=== PATIENT | female | born 1985 | race Caucasian/White ===

== ENCOUNTER 2016-07-07 10:48 | Emergency (ER) | payer MEDICAID ==
[~2016-07-07] VITALS: Wt 54.5 kg
[~2016-07-07 10:48] MED LIST: FERR28TA PO; PREN-39 PO
[2016-07-07 13:08] LABS: BASOPHILS % 0.4 % (0.0-2.0); EOSINOPHILS # 0.1 10^3/ul (0.0-0.5); EOSINOPHILS % 0.5 % (0.0-7.0); HEMATOCRIT 34.1 % (37.0-47.0); LYMPHOCYTES # 1.9 10^3/ul (0.8-2.9); LYMPHOCYTES % 15.4 % (15.0-51.0); MEAN CORPUSCULAR HEMOGLOBIN 31.9 pg (29.0-33.0); MEAN CORPUSCULAR HGB CONC 35.2 g/dl (32.0-37.0); MEAN CORPUSCULAR VOLUME 90.6 fl (82.0-101.0); MEAN PLATELET VOLUME 9.2 fl (7.4-10.4); MONOCYTE # 0.4 10^3/ul (0.3-0.9); MONOCYTES % 3.2 % (0.0-11.0); NEUTROPHIL # 9.8 10^3/ul (1.6-7.5); NEUTROPHILS % 80.5 % (39.0-77.0); PLATELET COUNT 241 10^3/UL (140-440); RED BLOOD COUNT 3.76 10^6/ul (4.20-5.40); RED CELL DISTRIBUTION WIDTH 12.5 % (11.5-14.5); UNCORRECTED WBC 12.2 10^3/ul (4.8-10.8); WHITE BLOOD COUNT 12.2 10^3/ul (4.8-10.8)
[2016-07-07 13:13] LABS: ALBUMIN 4.5 g/dl (3.3-4.9); CONDITION 1; POTASSIUM 3.5 mmol/L (3.5-5.1)
[2016-07-07 13:15] LABS: CREATININE 0.47 mg/dl (0.44-1.00)
[2016-07-07 13:16] LABS: ALBUMIN/GLOBULIN RATIO 1.21; BILIRUBIN,INDIRECT 1.5 mg/dl (0-1.1); BILIRUBIN,TOTAL 1.5 mg/dl (0.2-1.3); CALCIUM 9.4 mg/dl (8.4-10.2); TOTAL PROTEIN 8.2 g/dl (6.1-8.1)
--- NOTE | 2016-07-07 13:23 | RADRPT ---
PROCEDURE: US Abdomen. CLINICAL INDICATION: Abdominal pain. TECHNIQUE: Multiple real-time images were acquired of the patient's abdomen and retroperitoneum ut ilizing a high resolution transducer. COMPARISON: None FINDINGS: The liver demonstrates normal echogenicity. The liver is normal in size and no focal solid lesions are seen. The portal vein is patent with normal direction of flow. No intrahepatic biliary dilatat ion is seen. The liver measures 15.7 cm in length. No gallstones are identified within the gallbladder. There is no pericholecystic fluid or gallbladd er wall thickening. The common bile duct measures 3 mm in maximal dimension. The visualized portions of the pancreas are unremarkable. The spleen is normal in size. The spleen measures 9.5 cm in length. No free fluid is identified. The kidneys are normal in size, and demonstrate normal echogenicity and cortical thickness. The rig ht kidney measures 12.45 cm. The left kidney measures 12.6 cm. There is no evidence of hydronephro sis. There are no kidney stones. The proximal aorta measures 1.3 cm in transverse dimension. IMPRESSION: Unremarkable abdominal ultrasound. RPTAT:AAJJ Physician Beth Date Time Electronically viewed and signed by Physician Beth on 07/07/2016 13:23 ROBERTO CARLOS/
--- NOTE | 2016-07-07 13:26 | RADRPT ---
PROCEDURE: US Pelvis. CLINICAL INDICATION: Vaginal bleeding with . TECHNIQUE: Multiple sonographic images of the pelvis were obtained utilizing a transabdominal and endovaginal technique. The images were reviewed on a PACS workstation. COMPARISON: 04/05/2016 pelvic ultrasound. FINDINGS: Single live intrauterine 8 weeks 1 day gestational age by crown-rump length measurement. P ositive heart motion with a heart rate of 185 beats per minute.. Small crescentic focus of de creased echogenicity along the inferior margin of the gestational sac compatible with trace subchori onic hemorrhage. Normal right ovary with normal blood flow. Left ovary not visualized. No free fluid or adnexal mas s. IMPRESSION: 1. Single live intrauterine 8 weeks 1 day gestational age. Positive heart motion w ith a heart rate of 185 beats per minute. 2. Small subchorionic hemorrhage. 3. Nonvisualization left ovary. Normal right ovary. 4. No free fluid or adnexal mass. RPTAT:AAJJ Physician Beth Date Time Electronically viewed and signed by Physician Beth on 07/07/2016 13:26 ROBERTO CARLOS/
[2016-07-07 13:27] LABS: URINE BLOOD (Dip) POC 1+ (NEGATIVE)
--- NOTE | 2016-07-07 13:43 | ERD ---
ER Documentation Chief Complaint Date/Time DATE: 07/07/16 TIME: 13:41 Chief Complaint ABD PAIN SINCE YESTERDAY. NO VAG BLEED, NO N/V/ HPI This patient is a Ab1 LC3, 31-year-old female presenting to the emergency department for bilateral lower quadrant radiating to the suprapubic area abdominal pain which is been ongoing for 2 days. The patient additionally reports some nausea and one episode of vomiting. The patient denies any vaginal bleeding or cramping. She has taken no medication at home for her symptoms. Pain is rated at a 6 out of 10 on the pain scale. She states her LMP was approximately April 17, 2016. Patient denies any fevers, chills, dysuria, or other symptoms at this time. ROS All systems reviewed and are negative except as per history of present illness. Medications Home Meds Reported Medications Ferrous Sulfate (Ferrous Sulfate) 1 Tab Tablet, 1 TAB PO DAILY 08/28/13 Vits W-Ca,Fe,Fa(<1MG) ( Vitamins) 1 Tab Tablet, 1 TAB PO DAILY 08/28/13 Allergies Allergies: Coded Allergies: No Known Allergies (Verified Allergy, Unknown, 08/28/13) No Known Drug Allergy (Verified Allergy, Unknown, 04/26/11) PMhx/Soc Medical and Surgical Hx: pt denies Medical Hx, pt denies Surgical Hx History of Surgery: No Anesthesia Reaction: No Hx Neurological Disorder: No Hx Respiratory Disorders: No Hx Cardiac Disorders: No Hx Psychiatric Problems: No Hx Miscellaneous Medical Probl: No Hx Alcohol Use: No Hx Substance Use: No Hx Tobacco Use: No Smoking Status: Never smoker FmHx Noncontributory for chief complaint Physical Exam Vitals Vital Signs Date Time Temp Pulse Resp B/P Pulse Ox O2 Delivery O2 Flow Rate FiO2 07/07/16 10:51 98.8 71 20 107/54 100 Physical Exam INITIAL VITAL SIGNS: Reviewed by me. GENERAL: Alert and interactive. No acute distress. HEAD: Head is normocephalic and atraumatic. EYES: EOMI. No scleral icterus. No conjunctival injection. ENT: Moist mucosa. NECK: Supple. Full range of motion. RESPIRATORY: Normal respiratory effort. Clear breath sounds bilaterally. No wheezing, rales, or rhonchi. CV: Regular rate and rhythm. Normal S1 S2. No S3 or S4. No murmurs. ABDOMEN: Soft, non-distended, non-tender. No guarding. No rebound. No masses. EXTREMITIES: No deformity. SKIN: Warm and dry. NEUROLOGIC: Alert and oriented x 4. Speech is normal. Moves all extremities equally. No motor or sensory deficits noted. Result Diagram: 07/07/16 1245 07/07/16 1245 Results 24 hrs Laboratory Tests Test 07/07/16 12:45 07/07/16 13:28 Alanine Aminotransferase (ALT/SGPT) 20IU/L Albumin 4.5g/dl Albumin/Globulin Ratio 1.21 Alkaline Phosphatase 41IU/L Anion Gap 17 Aspartate Amino Transf (AST/SGOT) 12IU/L Basophils # 0.010^3/ul Basophils % 0.4% Blood Urea Nitrogen 11mg/dl Calcium Level 9.4mg/dl Carbon Dioxide Level 25mmol/L Chloride Level 102mmol/L Creatinine 0.47mg/dl Direct Bilirubin 0.00mg/dl Eosinophils # 0.110^3/ul Eosinophils % 0.5% Globulin 3.70g/dl Glucose Level 136mg/dl Hematocrit 34.1% Hemoglobin 12.0g/dl Indirect Bilirubin 1.5mg/dl Lymphocytes # 1.910^3/ul Lymphocytes % 15.4% Mean Corpuscular Hemoglobin 31.9pg Mean Corpuscular Hemoglobin Concent 35.2g/dl Mean Corpuscular Volume 90.6fl Mean Platelet Volume 9.2fl Monocytes # 0.410^3/ul Monocytes % 3.2% Neutrophils # 9.810^3/ul Neutrophils % 80.5% Nucleated Red Blood Cells # 0.010^3/ul Nucleated Red Blood Cells % 0.0/100WBC Platelet Count 98904^3/UL Potassium Level 3.5mmol/L Red Blood Count 3.7610^6/ul Red Cell Distribution Width 12.5% Sodium Level 140mmol/L Total Bilirubin 1.5mg/dl Total Protein 8.2g/dl White Blood Count 12.210^3/ul Bedside Urine Blood 1+ Bedside Urine Glucose (UA) Negative Bedside Urine Ketones (LAB) Negative Bedside Urine Leukocyte Esterase (L Negative Bedside Urine Nitrite (LAB) Negative Bedside Urine Protein (LAB) Negative Bedside Urine pH (LAB) 6.0 Procedures/MDM EMERGENCY DEPARTMENT COURSE / MEDICAL DECISION MAKING: This is a 31-year-old female who comes to the emergency room secondary to complaints of lower quadrant abdominal pain. The patient was given [] in the department. On re-evaluation, the patient was feeling improved. Lab results reviewed and showed [] Radiology: PROCEDURE: US Abdomen. CLINICAL INDICATION: Abdominal pain. TECHNIQUE: Multiple real-time images were acquired of the patient's abdomen and retroperitoneum utilizing a high resolution transducer. COMPARISON: None FINDINGS: The liver demonstrates normal echogenicity. The liver is normal in size and no focal solid lesions are seen. The portal vein is patent with normal direction of flow. No intrahepatic biliary dilatation is seen. The liver measures 15.7 cm in length. No gallstones are identified within the gallbladder. There is no pericholecystic fluid or gallbladder wall thickening. The common bile duct measures 3 mm in maximal dimension. The visualized portions of the pancreas are unremarkable. The spleen is normal in size. The spleen measures 9.5 cm in length. No free fluid is identified. The kidneys are normal in size, and demonstrate normal echogenicity and cortical thickness. The right kidney measures 12.45 cm. The left kidney measures 12.6 cm. There is no evidence of hydronephrosis. There are no kidney stones. The proximal aorta measures 1.3 cm in transverse dimension. IMPRESSION: Unremarkable abdominal ultrasound. PROCEDURE: US Pelvis. CLINICAL INDICATION: Vaginal bleeding with . TECHNIQUE: Multiple sonographic images of the pelvis were obtained utilizing a transabdominal and endovaginal technique. The images were reviewed on a PACS workstation. COMPARISON: 04/05/2016 pelvic ultrasound. FINDINGS: Single live intrauterine 8 weeks 1 day gestational age by crown-rump length measurement. Positive heart motion with a heart rate of 185 beats per minute.. Small crescentic focus of decreased echogenicity along the inferior margin of the gestational sac compatible with trace subchorionic hemorrhage. Normal right ovary with normal blood flow. Left ovary not visualized. No free fluid or adnexal mass. IMPRESSION: 1. Single live intrauterine 8 weeks 1 day gestational age. Positive heart motion with a heart rate of 185 beats per minute. 2. Small subchorionic hemorrhage. 3. Nonvisualization left ovary. Normal right ovary. 4. No free fluid or adnexal mass. The primary diagnosis is []. Secondary diagnosis is [] I have low suspicion for [] at this time. Discharge: I have discussed the lab results and diagnostic findings with the patient and answered any questions or concerns. The patient was discharged with a prescription for []. The patient was advised to followup with their PMD in 1- 2 days and to return to the Emergency Department if there are any new or worsening symptoms. The patient understood and agreed with the diagnosis, treatment and plan. The patient is stable for discharge at this time. Departure Diagnosis: Primary Impression: Abdominal pain Condition: Stable Additional Instructions: No mas mejor en 2-3 davis, regresar. Mas peor en 24 horas, regresear rapidamente. Ir a doctor primario in 5-7 davis. Usar instrucciones cuando chandrika medicamento. ANNIE MIMS PA-C Jul 07, 2016 13:43
[2016-07-07] MEDS ORDERED: ACET325T33 PO (14:03)
== END 2016-07-07 14:13 | disposition home or self-care (01) ==
LOC: FTE 10:48
DX: O26.891 Other specified pregnancy related conditions, first trimester (principal); R10.31 Right lower quadrant pain; R10.32 Left lower quadrant pain; Z3A.08 8 weeks gestation of pregnancy
CPT/HCPCS: 76700; 76801; 80053; 81003; 85025; Z7502

== ENCOUNTER 2016-07-21 18:30 | Emergency (ER) | payer MEDICAID ==
[~2016-07-21] VITALS: Ht 160 cm; Wt 54.5 kg
[~2016-07-21 18:30] MED LIST changes: +ACET325T33 PO
[2016-07-21 19:00] VITALS: Ht 160 cm; Wt 54.5 kg
[2016-07-21 19:48] LABS: BASOPHILS % 0.5 % (0.0-2.0); EOSINOPHILS # 0.2 10^3/ul (0.0-0.5); EOSINOPHILS % 1.8 % (0.0-7.0); HEMOGLOBIN 11.9 g/dl (12.0-16.0); LYMPHOCYTES # 2.9 10^3/ul (0.8-2.9); LYMPHOCYTES % 30.5 % (15.0-51.0); MEAN CORPUSCULAR HEMOGLOBIN 31.7 pg (29.0-33.0); MEAN CORPUSCULAR VOLUME 93.2 fl (82.0-101.0); MEAN PLATELET VOLUME 8.9 fl (7.4-10.4); MONOCYTE # 0.4 10^3/ul (0.3-0.9); MONOCYTES % 4.3 % (0.0-11.0); NEUTROPHIL # 5.9 10^3/ul (1.6-7.5); NEUTROPHILS % 62.9 % (39.0-77.0); PLATELET COUNT 261 10^3/UL (140-440); RED BLOOD COUNT 3.76 10^6/ul (4.20-5.40); RED CELL DISTRIBUTION WIDTH 12.8 % (11.5-14.5); UNCORRECTED WBC 9.4 10^3/ul (4.8-10.8); WHITE BLOOD COUNT 9.4 10^3/ul (4.8-10.8)
[2016-07-21 19:51] LABS: CONDITION 1
[2016-07-21 19:55] LABS: ADD UMIC YES; URINE BILIRUBIN (Dip) NEGATIVE (NEGATIVE); URINE BLOOD (Dip) 3+ (NEGATIVE); URINE COLOR RED (YELLOW); URINE GLUCOSE (Dip) NEGATIVE (NEGATIVE); URINE KETONES (Dip) TRACE (NEGATIVE); URINE LEUKOCYTE ESTERASE (Dip) NEGATIVE (NEGATIVE); URINE NITRITE (Dip) NEGATIVE (NEGATIVE); URINE TOTAL PROTEIN (Dip) 4+ (NEGATIVE); URINE UROBILINOGEN (Dip) 1.0 E.U./dL (0.1-1.0)
--- NOTE | 2016-07-21 20:07 | ERD ---
ER Documentation Chief Complaint Date/Time DATE: 07/21/16 TIME: 20:06 Chief Complaint vag bleed and x 1 day. 10 weeks HPI Patient is a 31-year-old female who is presents to the ED with 2 hours of light vaginal bleeding and bilateral pelvic pain. She states that her last normal menstrual period was 05/02/17. She denies fever or chills. Denies abdominal pain, nausea, vomiting or diarrhea. Denies headache or dizziness. Denies leg pain or swelling. Denies recent travel or surgeries. She has an OB doctor that she is following but unsure of name. ROS All systems reviewed and are negative except as per history of present illness. Medications Home Meds Active Scripts Acetaminophen* (Tylophen*) 500 Mg Capsule, 1 CAP PO Q6H Y for PAIN AND OR ELEVATED TEMP, #20 CAP Prov:CAT MACHUCA PA-C 07/21/16 Acetaminophen* (Tylenol*) 325 Mg Tablet, 1 TAB PO Q6 Y for PAIN AND OR ELEVATED TEMP, #20 TAB Prov:ANNIE MIMS PA-C 07/07/16 Reported Medications Ferrous Sulfate (Ferrous Sulfate) 1 Tab Tablet, 1 TAB PO DAILY 08/28/13 Vits W-Ca,Fe,Fa(<1MG) ( Vitamins) 1 Tab Tablet, 1 TAB PO DAILY 08/28/13 Allergies Allergies: Coded Allergies: No Known Allergies (Verified Allergy, Unknown, 08/28/13) No Known Drug Allergy (Verified Allergy, Unknown, 04/26/11) PMhx/Soc Medical and Surgical Hx: pt denies Medical Hx, pt denies Surgical Hx History of Surgery: No Anesthesia Reaction: No Hx Neurological Disorder: No Hx Respiratory Disorders: No Hx Cardiac Disorders: No Hx Psychiatric Problems: No Hx Miscellaneous Medical Probl: No Hx Alcohol Use: No Hx Substance Use: No Hx Tobacco Use: No Physical Exam Vitals Vital Signs Date Time Temp Pulse Resp B/P Pulse Ox O2 Delivery O2 Flow Rate FiO2 07/21/16 19:00 98.4 72 16 103/59 100 Physical Exam GENERAL: Well-developed, well-nourished female. Appears in no acute distress. LUNG: Clear to auscultation bilaterally. No rhonchi, wheezing, rales or coarse breath sounds. HEART: Regular rate and rhythm. No murmurs, rubs or gallops. Extremities: Equal pulses bilaterally. No peripheral clubbing, cyanosis or edema. No unilateral leg swelling. NEUROLOGIC: Alert and oriented. Moving all four extremities. 5/5 strength in all extremities. Normal speech. Steady gait. SKIN: Normal color. Warm and dry. No rashes or lesions. Capillary refill < 2 seconds Result Diagram: 07/21/161940 Results 24 hrs Laboratory Tests Test 07/21/16 19:41 Basophils # 0.010^3/ul Basophils % 0.5% Beta HCG, Quantitative 21948.0mIU/ml Eosinophils # 0.210^3/ul Eosinophils % 1.8% Hematocrit 35.0% Hemoglobin 11.9g/dl Lymphocytes # 2.910^3/ul Lymphocytes % 30.5% Mean Corpuscular Hemoglobin 31.7pg Mean Corpuscular Hemoglobin Concent 34.0g/dl Mean Corpuscular Volume 93.2fl Mean Platelet Volume 8.9fl Monocytes # 0.410^3/ul Monocytes % 4.3% Neutrophils # 5.910^3/ul Neutrophils % 62.9% Nucleated Red Blood Cells # 0.010^3/ul Nucleated Red Blood Cells % 0.0/100WBC Platelet Count 87415^3/UL Red Blood Count 3.7610^6/ul Red Cell Distribution Width 12.8% Urine Bacteria FEW Urine Bilirubin NEGATIVE Urine Clarity SLIGHTLY CLOUDY Urine Color RED Urine Glucose NEGATIVE% Urine Hemoglobin 3+ Urine Ketones TRACE Urine Leukocyte Esterase NEGATIVE Urine Microscopic RBC >200/HPF Urine Microscopic WBC 0-2/HPF Urine Nitrite NEGATIVE Urine Specific [place] 1.025 Urine Squamous Epithelial Cells MODERATE Urine Total Protein 4+ Urine Urobilinogen 1.0 E.U./dL Urine pH 7.0 White Blood Count 9.410^3/ul Current Medications Medications (Trade) Dose Ordered Sig/Smiley Route PRN Reason Start Time Stop Time Status Last Admin Dose Admin Acetaminophen (Tylenol Tab) 500 mg ONCE STAT PO 07/21/16 21:54 07/21/16 21:55 07/21/16 21:56 Procedures/MDM ER COURSE: I kept the patient and/or family informed of laboratory and diagnostic imaging results throughout the emergency room course. EKG, MONITORS, & DIAGNOSTIC IMAGING: [place] [id number] Radiology Main Line: [phone] DIAGNOSTIC IMAGING REPORT Patient: JOSEF GREGORY : 1985 Age: 31 Sex: F MR #: [id number] DOS: 07/21/161926 Ordering MD: CAT MACHUCA PA-C Location: [facility] Room/Bed: PROCEDURE: US OB. CLINICAL INDICATION: Vaginal bleeding. Follow-up subchorionic bleed. TECHNIQUE: Multiple sonographic images of the pelvis were obtained. Transabdominal scanning of the pelvis are available for review. The images were reviewed on a PACS workstation. COMPARISON: No prior studies are available for comparison. FINDINGS: The uterus measures 13.5 x 7.7 x 8.9 cm. Intrauterine is identified. The crown-rump length equals 3.8 cm which corresponds to 10 weeks 5 days gestational age by ultrasound criteria. Gestational sac size is 3.8 cm corresponding to 9 weeks 1 day. cardiac activity is 171 beats per minute. Large right-sided 8.1 x 3.5 x 6.8 cm subchorionic hemorrhage subchorionic hemorrhage is identified. The adnexa are unremarkable. Trace free fluid is seen in the bilateral adnexa. The right ovary measures 3.3 cm. Left ovary measures 2.9 cm. There is normal size shape and flow of the bilateral ovaries. IMPRESSION: 1. Single viable intrauterine gestation of approximately 10 weeks 5 days by crown-rump length. 2. Large right-sided 8.1 x 3.5 x 6.8 cm subchorionic hemorrhage. 3. Trace free fluid in the pelvis.. RPTAT: HJPL .Young Koch MD, MD Date Time Electronically viewed and signed by .Young Koch MD, on 07/21/2016 21:37 .L/ CC: CAT MACHUCA PA-C MEDICATIONS: Tylenol. Patient tolerated well with no adverse reaction LAB INTERPRETATION: CBC showed no evidence of systemic infection or severe anemia.UA showed no evidence of leukocytes, nitrites or hematuria. Beta hCG 61903. Rh: O+ MEDICAL DECISION MAKING: This is a 31-year-old female who presents with here with pelvic pain and vaginal bleeding. Vital signs were reviewed. Patient is afebrile. Patient is not hypoxic. Patient is not toxic or ill-appearing. Her ultrasound is read by radiologist showsSingle viable intrauterine gestation of approximately 10 weeks 5 days by crown-rump length. Large right-sided 8.1 x 3.5 x 6.8 cm subchorionic hemorrhage. I have spoken with Dr. Daphne ba who has reviewed her ultrasound results. Patient is stable for outpatient therapy. Patient has threatened and must come back for recheck of ultrasound and beta hCG in 2 days or to follow-up with OB doctor in 2 days. Low suspicion for ectopic , , molar , endometriosis, PID, cervicitis , septic , molar , HELLP syndrome, preeclampsia, eclampsia, placenta previa, placenta abruptia. Low suspicion for ovarian torsion, PID, tuboovarian abscess, ectopic , bowel obstruction, pyelonephritis, UTI, appendicitis, cervicitis, septic , molar , HELLP syndrome, preeclampsia, eclampsia, placenta previa, placenta abruptia. DISCHARGE: At this time, patient is stable for discharge and outpatient management with no new complaints during the ER course. Patient was sent home with Tylenol and to rest, pelvic rest. No sexual activity and to recheck beta-hCG and ultrasound in 2 days. Patient come to the ER or to follow-up with her OB doctor in 2 days.. Patient will be discharged home with instructions to recheck for new or worsening symptoms such as fever, nausea, weakness, LOC and to follow up with primary care in the next 1-2 days. Patient was advised to return to the ER for any new or worsening symptoms. Plan was discussed and patient and/or family understands and agrees. Home instructions were given. Departure Diagnosis: Primary Impression: Vaginal bleeding in patient at less than 20 weeks gestation Condition: Stable CAT MACHUCA PA-C Jul 21, 2016 20:07
[2016-07-21 20:10] LABS: URINE RBCS >200 /HPF (0)
[2016-07-21 20:11] LABS: SQUAMOUS EPITHELIAL CELL,UR MODERATE
[2016-07-21 20:13] LABS: BACTERIA,URINE FEW
--- NOTE | 2016-07-21 21:37 | RADRPT ---
PROCEDURE: US OB. CLINICAL INDICATION: Vaginal bleeding. Follow-up subchorionic bleed. TECHNIQUE: Multiple sonographic images of the pelvis were obtained. Transabdominal scanning of th e pelvis are available for review. The images were reviewed on a PACS workstation. COMPARISON: No prior studies are available for comparison. FINDINGS: The uterus measures 13.5 x 7.7 x 8.9 cm. Intrauterine is identified. The crown-rump ganesh th equals 3.8 cm which corresponds to 10 weeks 5 days gestational age by ultrasound criteria. Gesta tional sac size is 3.8 cm corresponding to 9 weeks 1 day. cardiac activity is 171 beats per mi nute. Large right-sided 8.1 x 3.5 x 6.8 cm subchorionic hemorrhage subchorionic hemorrhage is ident ified. The adnexa are unremarkable. Trace free fluid is seen in the bilateral adnexa. The right o vary measures 3.3 cm. Left ovary measures 2.9 cm. There is normal size shape and flow of the bilat eral ovaries. IMPRESSION: 1. Single viable intrauterine gestation of approximately 10 weeks 5 days by crown-rump length. 2. Large right-sided 8.1 x 3.5 x 6.8 cm subchorionic hemorrhage. 3. Trace free fluid in the pelvis.. RPTAT: HJPL .Young Koch MD, MD Date Time Electronically viewed and signed by .Young Koch MD, on 07/21/2016 21:37 .L/
[2016-07-21] MEDS ORDERED: ACET500C5 PO (21:53)
[2016-07-21] MEDS ORDERED: ACETAMINOPHEN 500 MG TAB PO STA (21:54)
[2016-07-21 21:59] VITALS: BP 102/57; PULSE 70; RESP 18; TEMP 98.1
== END 2016-07-21 21:59 | disposition home or self-care (01) ==
LOC: FTE 18:30
DX: O20.9 Hemorrhage in early pregnancy, unspecified (principal); R10.2 Pelvic and perineal pain; Z3A.10 10 weeks gestation of pregnancy
CPT/HCPCS: 36415; 76801; 81001; 84702; 85025; 86900; 86901; Z7502; Z7610; 81003

== ENCOUNTER → 2016-11-01 | Outpatient (CLI) | payer MEDICAID ==
[~2016-11-01] MED LIST changes: +ACET500C5 PO
--- NOTE | 2016-11-01 18:33 | RADRPT ---
PROCEDURE: XR Chest. CLINICAL INDICATION: Positive PPD. 25 weeks . TECHNIQUE: Single frontal view with abdominal and pelvic shielding. COMPARISON: None. FINDINGS: The lungs are clear. The heart size is normal. There is no pleural effusion. There is no pneumothorax. IMPRESSION: 1. No evidence of active tuberculosis. 2. Normal chest radiograph. RPTAT: QQ .Phong Pizarro MD, MD Date Time Electronically viewed and signed by .Phong Pizarro MD, on 11/01/2016 18:32 .R/
== END | disposition home or self-care (01) ==
LOC: RAD 13:07
PROVIDERS: ATTEND Obstetrics & Gynecology
DX: O26.892 Other specified pregnancy related conditions, second trimester (principal); R76.11 Nonspecific reaction to tuberculin skin test without active tuberculosis; Z3A.25 25 weeks gestation of pregnancy
CPT/HCPCS: 71010

== ENCOUNTER 2017-02-02 16:51 | Outpatient (CLI) | payer MEDICAID ==
[~2017-02-02] VITALS: Ht 154.9 cm; Wt 72.7 kg
[~2017-02-02 16:51] MED LIST changes: +MEDR150D9 IM
[2017-02-02 17:58] VITALS: BP 102/70; PULSE 93; RESP 20
[2017-02-02 18:00] VITALS: Ht 154.9 cm; Wt 72.7 kg
--- NOTE | 2017-02-02 18:32 | PN ---
Triage Information Date/Time Reason for visit: Uterine contractions Weeks of Gestation 38+ weeks of gestation presents for rule out labor /Para 4 para 3 Diabetes: none Hypertention: none Objective Vital Signs Date Time Temp Pulse Resp B/P Pulse Ox O2 Delivery O2 Flow Rate FiO2 02/02/17 17:58 97.5 93 20 102/70 Room Air Heart Rate: 140's Heart Rate Comments NST is reactive Contractions: 6-10 Minutes Apart Exam cervix 2 cm per nurse Disposition: Discharge Assessment/Plan Patient ambulated for 1 hour with no cervical change kick count instructions were given patient was discharged home Patient was given instruction to follow-up with her own [facility] in 2-3 days LEVY ARNOLD MD Feb 02, 2017 18:32
[2017-02-02] MEDS ORDERED: CALC600T5 PO (19:57)
--- NOTE | 2017-02-03 01:48 | TRIAGE ---
OB Triage Datetime Report Generated by CPN: 02/03/2017 01:47 Datetime: 02/02/2017 21:21 Stage of : OB Triage Labor Evaluation Frequency: 1.5-7.5 Monitor Mode: External Duration (sec)2399: 40-110 Quality: Mild Pattern: Normal: <= 5 Contractions in 10 Minutes Resting Tone [place]: Relaxed Heart Rate FHR Baseline Rate: 140 Monitor Mode: External US Variability: Moderate 6-25 bpm Accelerations: 15X15 Decelerations: None Category: Category I Datetime: 02/02/2017 20:30 Stage of : OB Triage Labor Evaluation Frequency: 2-7 Monitor Mode: External Duration (sec)2399: 40-140 Quality: Mild Pattern: Normal: <= 5 Contractions in 10 Minutes Resting Tone [place]: Relaxed Heart Rate FHR Baseline Rate: 145 Monitor Mode: External US Variability: Moderate 6-25 bpm Accelerations: 15X15 Decelerations: None Category: Category I Datetime: 02/02/2017 20:10 Stage of : OB Triage Vaginal Exam Dilatation (cms): 2.0 Effacement (%): 60 Station: -3 Exam By: ADAM Forrester Membrane Status: Intact Vaginal Bleeding: Scant Cervix, Consistency: Soft Cervix, Position: Posterior Datetime: 02/02/2017 20:07 Stage of : OB Triage Assessment Type: Triage Maternal Assessment Level of Consciousness: Fully Conscious DTR's/Clonus: DTRs 2+; No Clonus Headache: Denies Blurred Vision: No Respiratory Effort: Unlabored; Regular Rhythm; Equal Expansion Breath Sounds, Left: Clear and Equal Breath Sounds, Right: Clear and Equal Nausea/Vomiting: Denies RUQ Epigastric Pain: Denies Lower Extremities Edema: None Degree: None Upper Extremities Edema: None Degree: None Facial Edema: None Temperature Route: Oral Fall Risk Assessment History of Falling: (0) No Secondary Diagnosis: (0) No Ambulatory Aid: (0) Bedrest/Nurse Assist IV Therapy: (0) No Gait: (0) Normal/Bedrest/Immobile Mental Status: (0) Oriented to Own Ability Fall Score: 0 Fall Risk Score Definition: No Risk: No action required Pain Assessment Pain Scale: 2 Pain Presence: Intermittent Pain Type: Cramping; Contraction Pain Location: Abdomen; Back Pain Relief Measures: Comfort Measures Datetime: 02/02/2017 20:06 Stage of : OB Triage Datetime: 02/02/2017 19:57 Stage of : OB Triage Datetime: 02/02/2017 19:20 Stage of : OB Triage Datetime: 02/02/2017 17:55 Stage of : OB Triage Vaginal Exam Dilatation (cms): 1.5 Effacement (%): 50 Station: -3 Exam By: Carmen,RN Datetime: 02/02/2017 16:58 Stage of : OB Triage Assessment Type: Triage Maternal Assessment Level of Consciousness: Fully Conscious DTR's/Clonus: DTRs 2+; No Clonus Headache: Denies Blurred Vision: No Respiratory Effort: Unlabored; Regular Rhythm; Equal Expansion Breath Sounds, Left: Clear and Equal Breath Sounds, Right: Clear and Equal Nausea/Vomiting: Denies RUQ Epigastric Pain: Denies Lower Extremities Edema: None Degree: None Upper Extremities Edema: None Degree: None Facial Edema: None Temperature Route: Oral Fall Risk Assessment History of Falling: (0) No Secondary Diagnosis: (0) No Ambulatory Aid: (0) Bedrest/Nurse Assist IV Therapy: (0) No Gait: (0) Normal/Bedrest/Immobile Mental Status: (0) Oriented to Own Ability Fall Score: 0 Fall Risk Score Definition: No Risk: No action required Labor Evaluation Frequency: 0 Monitor Mode: External Pattern: Normal: <= 5 Contractions in 10 Minutes Resting Tone [place]: Relaxed Heart Rate FHR Baseline Rate: 150 Monitor Mode: External US FHR Baseline Changes: No Baseline Change Variability: Moderate 6-25 bpm Accelerations: 15X15 Decelerations: None Category: Category I Datetime: 02/02/2017 16:56 Time of Arrival: 02/02/2017 15:38 EGA: 38.5 Arrived By: Ambulatory Chief Complaint: CONTRACTIONS FOR TWO DAYS,BLOODY SHOW Movement: Present Contractions: Occasional Contractions: 1 HOUR Rupture of Membranes: Denies Vaginal Discharge: Present Recent Sexual Intercouse: Denies Abdominal Trauma: Not Applicable Patient Complaints: Contractions Time Provider Notified: 02/02/2017 17:45 Provider Notified: DR BERMUDEZ Initial Plan: ALCIRA MARIANO
== END 2017-02-02 21:28 | disposition home or self-care (01) ==
LOC: OBT 16:51 → L-D 16:53 → OBT 21:28
PROVIDERS: ATTEND Obstetrics & Gynecology
DX: O62.9 Abnormality of forces of labor, unspecified (principal); Z3A.38 38 weeks gestation of pregnancy
CPT/HCPCS: G0463

== ENCOUNTER 2017-02-03 05:45 | Inpatient (IN) | payer MEDICAID ==
[~2017-02-03] VITALS: Ht 157.5 cm; Wt 72.7 kg
[~2017-02-03 05:45] MED LIST changes: -ACET325T33 PO; -ACET500C5 PO; +CALC600T5 PO; -MEDR150D9 IM
[2017-02-03 06:03] VITALS: BP 115/77; PULSE 68; RESP 20
[2017-02-03 06:06] VITALS: Ht 157.5 cm; Wt 72.7 kg
[2017-02-03] MEDS: LACTATED RINGER'S 1,000 ML IV SCH ×2 (06:24→07:40)
[2017-02-03] MEDS ORDERED: CARBOPROST 250 MCG INJ IM PRN ×2 (06:30→12:30)
[2017-02-03] MEDS ORDERED: AMPICILLIN 2 GM/NS (PMX) 100 ML IV ONE (06:30)
[2017-02-03] MEDS ORDERED: LIDOCAINE 1% (MPF) 30 ML INJ INJ PRN (06:30)
[2017-02-03] MEDS ORDERED: METHYLERGONOVINE 0.2 MG INJ IM PRN ×2 (06:30→12:30)
[2017-02-03] MEDS ORDERED: OXYTOCIN 30 UNITS/LR 500 ML IV PRN ×2 (06:30→12:30)
[2017-02-03] MEDS ORDERED: MISOPROSTOL 200 MCG TAB PR PRN ×2 (06:30→12:30)
[2017-02-03] MEDS ORDERED: BUTORPHANOL 2 MG INJ IV PRN (06:30)
[2017-02-03] MEDS ORDERED: LACTATED RINGER'S 1,000 ML IV PRN (06:30)
[2017-02-03] MEDS ORDERED: OXYTOCIN 30 UNITS/LR 500 ML IV SCH ×2 (06:30)
[2017-02-03] MEDS ORDERED: IBUPROFEN 600 MG TAB PO PRN (06:30)
--- NOTE | 2017-02-03 07:33 | TRIAGE ---
OB Triage Datetime Report Generated by CPN: 02/03/2017 07:33 Datetime: 02/03/2017 07:10 Assessment Type: Admission Assessment Vaginal Bleeding: None Level of Consciousness: Fully Conscious DTR's/Clonus: DTRs 2+; No Clonus Headache: Denies Blurred Vision: No Respiratory Effort: Unlabored; Regular Rhythm Breath Sounds, Left: Clear and Equal Breath Sounds, Right: Clear and Equal Nausea/Vomiting: Denies RUQ Epigastric Pain: Denies Lower Extremities Edema: None Degree: None Upper Extremities Edema: None Degree: None Facial Edema: None History of Falling: (0) No Secondary Diagnosis: (0) No Ambulatory Aid: (0) Bedrest/Nurse Assist IV Therapy: (20) Yes Gait: (0) Normal/Bedrest/Immobile Mental Status: (0) Oriented to Own Ability Fall Score: 20 Fall Risk Score Definition: No Risk: No action required Frequency: 2-5 Duration (sec)2399: 50-60 Quality: Moderate Pattern: Normal: <= 5 Contractions in 10 Minutes Resting Tone [place]: Relaxed FHR Baseline Rate: 135 Variability: Minimal - Undetectable to <=5 bpm Decelerations: None Category: Category II (Annotations: DUE TO MINIMAL VARIABILITY FROM IV PAIN MEDICATION) Pain Scale: 3 Pain Presence: Intermittent Pain Type: Contraction Pain Location: Abdomen; Back Pain Assessment Comments: PT RECENTLY MEDICATED WITH IV PAIN MEDICATION, STATES PAIN IS MUCH KALEB R, SLEEPING INTERMITTENTLY, EASILY AROUSABLE Datetime: 02/03/2017 07:07 Assessment Type: Ongoing Assessment Datetime: 02/03/2017 07:00 Dilatation (cms): 8.0 Effacement (%): 100 Station: -3 Exam By: Roberto Wisdom RN Vaginal Bleeding: Normal Show Cervix, Consistency: Soft Cervix, Position: Anterior Presentation 'A': Cephalic Datetime: 02/03/2017 06:46 Stage of : OB Triage Frequency: 1.5-8 Monitor Mode: External Duration (sec)2399: 40-130 Quality: Strong Pattern: Normal: <= 5 Contractions in 10 Minutes Resting Tone [place]: Relaxed FHR Baseline Rate: 135 Monitor Mode: External US FHR Baseline Changes: No Baseline Change Variability: Moderate 6-25 bpm Accelerations: 15X15 Decelerations: Variable Category: Category II Datetime: 02/03/2017 06:00 Stage of : OB Triage Frequency: 1.5-3 Monitor Mode: External Duration (sec)2399: 50-110 Quality: Strong Pattern: Normal: <= 5 Contractions in 10 Minutes Resting Tone [place]: Relaxed FHR Baseline Rate: 135 Monitor Mode: External US Variability: Minimal - Undetectable to <=5 bpm Datetime: 02/03/2017 05:58 Dilatation (cms): 7.0 Effacement (%): 90 Station: -2 Exam By: ADAM Forrester Membrane Status: Bulging Vaginal Bleeding: Small Cervix, Consistency: Soft Cervix, Position: Posterior Presentation 'A': Cephalic Datetime: 02/03/2017 05:55 Stage of : OB Triage Assessment Type: Triage Level of Consciousness: Fully Conscious DTR's/Clonus: DTRs 2+; No Clonus Headache: Denies Blurred Vision: No Respiratory Effort: Unlabored; Regular Rhythm; Equal Expansion Breath Sounds, Left: Clear and Equal Breath Sounds, Right: Clear and Equal Nausea/Vomiting: Denies RUQ Epigastric Pain: Denies Lower Extremities Edema: None Degree: None Upper Extremities Edema: None Degree: None Facial Edema: None Temperature Route: Oral History of Falling: (0) No Secondary Diagnosis: (0) No Ambulatory Aid: (0) Bedrest/Nurse Assist IV Therapy: (0) No Gait: (0) Normal/Bedrest/Immobile Mental Status: (0) Oriented to Own Ability Fall Score: 0 Fall Risk Score Definition: No Risk: No action required Pain Scale: 8 Pain Presence: Intermittent Pain Type: Cramping; Contraction Pain Location: Abdomen; Back Pain Relief Measures: Comfort Measures Datetime: 02/03/2017 05:50 Time of Arrival: 02/03/2017 05:39 EGA: 38.6 Arrived By: Ambulatory Arrived From: Home Chief Complaint: Pt d/c'd home @2130 on 02/02. States uc's got stronger _ more frequent. Movement: Present Contractions: Regular Time Contractions Began: 02/02/2017 22:00 Contractions: q3-5mins Rupture of Membranes: Denies Vaginal Bleeding: Small Vaginal Discharge: Present Abdominal Trauma: Not Applicable Patient Complaints: Contractions; Cramping; Back Pain Time Provider Notified: 02/03/2017 06:05 Provider Notified: Dr.Fazilat Datetime: 02/02/2017 21:10 Stage of : OB Triage Datetime: 02/02/2017 20:07 Fall Score: 0 Fall Risk Score Definition: No Risk: No action required Datetime: 02/02/2017 16:58 Fall Score: 0 Fall Risk Score Definition: No Risk: No action required Datetime: 02/02/2017 16:56 EGA: 38.5
--- NOTE | 2017-02-03 09:06 | HP ---
Date/Time of Note Date/Time of Note DATE: 02/03/17 TIME: 09:03 OB - History Hx of Present Free Text/Dictation 31-year-old female 4 para 3 at term gestation admitted complaining of labor pain started at 10 PM night prior to admission Chief Complaint: Liver pain Estimated Due Date: Feb 11, 2017 : 4 Para: 3 Care: Good Care Ultrasounds: Normal mid trimester US Obstetrical Complications: None Medical Complications: None Past Family/Social History * Past Medical, Surgical, Family and Obstetric Histories reviewed from chart. Blood Type: O+ Rubella: immune RPR/VDRL: Negative GBS Status: Negative HBsAG: Negative OB Admission Exam Vital Signs Vital Signs Vital Signs Date Time Temp Pulse Resp B/P Pulse Ox O2 Delivery O2 Flow Rate FiO2 02/03/17 06:03 97.5 68 20 115/77 Room Air Physical Exam HEENT: WNL Heart: Rhythm Normal Lungs: Clear, Equal Abdomen: WNL Extremities: Normal Reflexes: Normal Cervical Dilatation: 6cm Effacement: 100% Station: -2 Membranes: Intact Heart Rate: 140's Accelerations: Accelerations Present Decelerations: No Decelerations Varibility: Marked Contractions on Admission: < 5 Minutes Apart Date/Time Contractions Began: February 03, 2017 at 10 PM Frequency of Contractions: Every 5 minutes Duration: Over 60 seconds Intensity: Firm OB Assessment/Plan Reason for admission: active labor Other Assessment: Term gestation Plan: Expectant Management Other plan: Proceed with a spontaneous labor ARY LAWRENCE MD Feb 03, 2017 09:06
--- NOTE | 2017-02-03 09:07 | LDN ---
Date/Time of Note Date/Time of Note DATE: 02/03/17 TIME: 09:06 Delivery Summary Normal spontaneous vaginal delivery of a viable over an intact perineum Weeks of Gestation 38+ Placenta Delivered: Spontaneously, Intact & Complete Meconium: none Episiotomy: No Perineal laceration: 0 Anesthesia type: None Estimated blood loss: 300 Sponge & Needle done & correct: Yes All needle counts correct: Yes Any foreign bodies felt in the: No Problems: Infant Delivery Information Sex Sex: female Apgars 1 Minute: 9 5 Minute: 9 Suctioning Nose & mouth suctioned at [place]: Yes Delee suction performed: No Umbilical Cord Umbilical cord with: 3 Vessels Cord presentations: no nuchal cord Cord Blood was obtained: Yes Mother & Baby Disposition Disposition Mom & Baby to Maternity; Good: Yes (And baby were recovered in good condition) Mom transferred to: Other Baby to NICU: No ARY LAWRENCE MD Feb 03, 2017 09:07
[2017-02-03 09:34] LABS: BASOPHILS % 0.5 % (0.0-2.0); EOSINOPHILS # 0.1 10^3/ul (0.0-0.5); EOSINOPHILS % 1.2 % (0.0-7.0); HEMATOCRIT 34.2 % (37.0-47.0); HEMOGLOBIN 11.4 g/dl (12.0-16.0); LYMPHOCYTES # 2.1 10^3/ul (0.8-2.9); LYMPHOCYTES % 25.3 % (15.0-51.0); MEAN CORPUSCULAR HEMOGLOBIN 31.8 pg (29.0-33.0); MEAN CORPUSCULAR HGB CONC 33.3 g/dl (32.0-37.0); MEAN CORPUSCULAR VOLUME 95.5 fl (82.0-101.0); MEAN PLATELET VOLUME 12.8 fl (7.4-10.4); MONOCYTE # 0.7 10^3/ul (0.3-0.9); NEUTROPHILS % 64.4 % (39.0-77.0); PLATELET COUNT 206 10^3/UL (140-415); RED BLOOD COUNT 3.58 10^6/ul (4.20-5.40); RED CELL DISTRIBUTION WIDTH 13.2 % (11.5-14.5); WHITE BLOOD COUNT 8.1 10^3/ul (4.8-10.8)
[2017-02-03 10:00] LABS: INR 0.89; PARTIAL THROMBOPLASTIN TIME 25.8 Sec (25.0-35.0); PT RATIO 0.9
[2017-02-03] MEDS ORDERED: AMPICILLIN 1 GM/NS (PMX) 50 ML IV SCH (10:30)
[2017-02-03 11:35] VITALS: BP 111/73; PULSE 57; RESP 18
[2017-02-03] MEDS: IBUPROFEN 600 MG TAB PO SCH ×2 (12:29→17:56)
[2017-02-03] MEDS ORDERED: DIBUCAINE 1% 30 GM OINT PR PRN (12:30)
[2017-02-03] MEDS ORDERED: LANOLIN 7 GM TUBE TOP PRN (12:30)
[2017-02-03] MEDS ORDERED: ZOLPIDEM 5 MG TAB PO PRN (12:30)
[2017-02-03] MEDS ORDERED: HYDROCODONE/APAP (5/325) TAB PO PRN ×2 (12:30)
[2017-02-03] MEDS ORDERED: BENZOCAINE 20% 56 ML SPRAY TOP PRN (12:30)
[2017-02-03] MEDS ORDERED: WITCH HAZEL/GLYCERIN PAD PR PRN (12:30)
[2017-02-03] MEDS: LACTATED RINGER'S 1,000 ML IV* SCH ×2 (13:18→20:05)
[2017-02-03 16:30] VITALS: BP 100/62; PULSE 67; RESP 18
[2017-02-03 19:20] VITALS: BP 110/65; PULSE 64; RESP 18
[2017-02-03] MEDS: MAGNESIUM HYDROXIDE 30ML CUP PO SCH (21:39)
[2017-02-03] MEDS: SENNA/DOCUSATE NA (8.6MG/50MG) TAB PO SCH (21:39)
[2017-02-04] MEDS: IBUPROFEN 600 MG TAB PO SCH ×4 (00:09→17:29)
[2017-02-04 04:00] VITALS: BP 104/64; PULSE 61; RESP 18
[2017-02-04] MEDS: LACTATED RINGER'S 1,000 ML IV* SCH ×2 (04:05→12:05)
[2017-02-04 07:57] LABS: BASOPHILS % 0.3 % (0.0-2.0); EOSINOPHILS # 0.2 10^3/ul (0.0-0.5); EOSINOPHILS % 1.6 % (0.0-7.0); HEMATOCRIT 31.7 % (37.0-47.0); HEMOGLOBIN 10.6 g/dl (12.0-16.0); LYMPHOCYTES # 2.4 10^3/ul (0.8-2.9); LYMPHOCYTES % 25.9 % (15.0-51.0); MEAN CORPUSCULAR HEMOGLOBIN 31.8 pg (29.0-33.0); MEAN CORPUSCULAR HGB CONC 33.4 g/dl (32.0-37.0); MEAN CORPUSCULAR VOLUME 95.2 fl (82.0-101.0); MONOCYTE # 0.5 10^3/ul (0.3-0.9); MONOCYTES % 5.7 % (0.0-11.0); NEUTROPHILS % 65.6 % (39.0-77.0); PLATELET COUNT 195 10^3/UL (140-415); RED BLOOD COUNT 3.33 10^6/ul (4.20-5.40); RED CELL DISTRIBUTION WIDTH 13.5 % (11.5-14.5); WHITE BLOOD COUNT 9.4 10^3/ul (4.8-10.8)
[2017-02-04 08:00] VITALS: BP 108/57; PULSE 68; RESP 16
[2017-02-04] MEDS: MAGNESIUM HYDROXIDE 30ML CUP PO SCH ×2 (09:03→20:38)
[2017-02-04] MEDS: SENNA/DOCUSATE NA (8.6MG/50MG) TAB PO SCH ×2 (09:03→20:37)
[2017-02-04 16:00] VITALS: BP 101/61; PULSE 72; RESP 17
--- NOTE | 2017-02-04 18:41 | DS ---
Date/Time of Note Date/Time of Note home today or next day DATE: 02/04/17 TIME: 18:40 Obstetrical Discharge Record Final Diagnosis Final Diagnosis: Term delivered Other Final Diagnosis S/P vaginal delivery Vaginal Delivery Obstetrical Delivery: Spontaneous Condition on Discharge Physical Assessment Last Vitals: see nurses notes Voiding: Yes Bowel Movement: Yes Breast: Soft, non-tender, Filling Fundus: Firm Abdomen and Incision: soft BS + Episiotomy: NA Calf Tenderness: No Patient Condition: Good ARY LAWRENCE MD Feb 04, 2017 18:41
--- NOTE | 2017-02-04 18:43 | PD.PPDC ---
[employer] Discharge Instruction Provider Information Physician Information 31 y/o female had vaginal delivery Diagnosis Final Diagnosis: S/P vaginal delivery Condition Patient Condition: Good Diet Diet: Resume Regular Diet Activity/Restrictions Activity: Normal Activity May Shower Restrictions: Nothing in the Vagina Return to Work or School: Mar 25, 2017 Follow-up Follow-up with Physician: 4, Week/Weeks (in clinic ) Return to clinic for OB Instructions: Breast Tenderness Depression Comment: pelvic rest X 6 weeks ARY LAWRENCE MD Feb 04, 2017 18:43
[2017-02-04] MEDS ORDERED: IBUP-1542 PO (18:44)
[2017-02-04 19:30] VITALS: BP 110/67; PULSE 74; RESP 18
[2017-02-05 03:45] VITALS: BP 113/73; PULSE 68; RESP 18
[2017-02-05] MEDS: IBUPROFEN 600 MG TAB PO SCH ×4 (06:06→17:46)
[2017-02-05 07:40] VITALS: BP 108/63; PULSE 51; RESP 16
[2017-02-05] MEDS: SENNA/DOCUSATE NA (8.6MG/50MG) TAB PO SCH (08:33)
[2017-02-05] MEDS: MAGNESIUM HYDROXIDE 30ML CUP PO SCH (08:33)
[2017-02-05] MEDS ORDERED: DIPHTH/TET/ACEL PERTUSS (ADULT) 0.5 ML VIAL IM* ONE (09:00)
[2017-02-05] MEDS ORDERED: VARICELLA VACCINE LIVE/PF 1,350 UNIT/0.5 ML ML SC* ONE (09:00)
[2017-02-05] MEDS ORDERED: MEASLES,MUMPS,RUBELLA VACCINE INJ SC* ONE (09:00)
[2017-02-05 16:00] VITALS: BP 127/73; PULSE 58; RESP 16
== END 2017-02-05 18:22 | disposition home or self-care (01) | DRG 775 ==
LOC: OBT 05:45 → L-D 05:46 → OBT 06:09 → L-D 06:09 → PP1 12:10
PROVIDERS: ADMIT Obstetrics & Gynecology; ATTEND Obstetrics & Gynecology
PROC: 10E0XZZ Delivery of Products of Conception, External Approach (ICD-10-PCS; principal; 2017-02-03)
PROC: 4A1HXCZ Monitoring of Products of Conception, Cardiac Rate, External Approach (ICD-10-PCS; 2017-02-03)
DX: O80 Encounter for full-term uncomplicated delivery (principal); Z37.0 Single live birth; Z3A.38 38 weeks gestation of pregnancy
CPT/HCPCS: 36415; 85025; 85610; 85730; 86592; 86900; 86901; 87340; 90715; 90716; G0463; J0595; J2590; J7120